=== PATIENT | male | born 2000 | race American Indian/Alaskan Native ===

== ENCOUNTER 2018-07-01 20:22 | Emergency (ER) | payer SELFPAY ==
[2018-07-01] MEDS ORDERED: ZOFRAN IV ONE (20:53)
[2018-07-01] MEDS ORDERED: KETALAR IV ONE (20:53)
[2018-07-01] MEDS ORDERED: DIPRIVAN 10 MG/ML IV ONE (20:53)
[2018-07-01] MEDS ORDERED: NACL 0.9% 250ML 250 ML IV ONE (20:53)
--- NOTE | 2018-07-01 20:54 | Emergency Department Report ---
ED Lower Extremity HPI - General Chief Complaint: Extremity Injury, Lower Stated Complaint: KNEE PAIN Time Seen by Provider: 07/01/18 20:43 Source: patient Mode of arrival: Wheelchair Limitations: Physical Limitation - History of Present Illness Initial Comments: This is a 17-year-old gentleman, not known to this provider previously, reported history of prior knee injuries, who presents to the emergency room with a complaint of right-sided knee pain and potential patellar dislocation. Patient reports he was outside, "horsing around with my brother", when he reportedly twisted his knee, and therefore developed severe knee pain. He makes no complaint of headache, neck pain, chest pain, abdominal pain or shortness of breath. Hematologic no complaint of lower extremity weakness or numbness. The pain is sharp, does not radiate anywhere, increases with palpation and decreases with rest. MD Complaint: knee injury -: Sudden, hour(s) Injury: Knee: Right Type of Injury: other Place: home Severity: severe Improves With: rest Worsens With: movement, palpation Context: other Associated Symptoms: swelling - Related Data Previous Rx's Medication Instructions Recorded Last Taken Type Acetaminophen [Acetaminophen TAB] 500 mg PO Q6HR PRN #30 tablet 07/01/18 Unknown Rx Ibuprofen [Motrin] 400 mg PO Q8H PRN #30 tablet 07/01/18 Unknown Rx Allergies Allergy/AdvReac Type Severity Reaction Status Date / Time No Known Allergies Allergy Verified 07/01/18 20:28 ED Review of Systems ROS: Stated complaint: KNEE PAIN Other details as noted in HPI Constitutional: denies: fever Eyes: denies: eye discharge ENT: denies: epistaxis Respiratory: denies: cough Cardiovascular: denies: chest pain Gastrointestinal: denies: abdominal pain Musculoskeletal: joint swelling, arthralgia Skin: denies: lesions Neurological: denies: numbness, paresthesias Psychiatric: anxiety ED Past Medical Hx - Past Medical History Previous Medical History?: No - Surgical History Past Surgical History?: No - Social History Smoking Status: Current Every Day Smoker Substance Use Type: Alcohol, Marijuana - Medications Home Medications: Home Medications Medication Instructions Recorded Confirmed Last Taken Type Acetaminophen [Acetaminophen TAB] 500 mg PO Q6HR PRN #30 tablet 07/01/18 Unknown Rx Ibuprofen [Motrin] 400 mg PO Q8H PRN #30 tablet 07/01/18 Unknown Rx ED Physical Exam - General Limitations: Physical Limitation General appearance: alert, anxious, in distress - Head Head exam: Present: atraumatic, normocephalic - Eye Eye exam: Present: normal appearance, EOMI. Absent: nystagmus - ENT ENT exam: Present: normal exam, normal orophraynx, mucous membranes moist, normal external ear exam - Neck Neck exam: Present: normal inspection, full ROM. Absent: tenderness, meningismus - Respiratory Respiratory exam: Present: normal lung sounds bilaterally. Absent: respiratory distress - Cardiovascular Cardiovascular Exam: Present: regular rate, normal rhythm, normal heart sounds. Absent: bradycardia, tachycardia, irregular rhythm, systolic murmur, diastolic murmur, rubs, gallop - GI/Abdominal GI/Abdominal exam: Present: soft. Absent: distended, tenderness, guarding, rebound, rigid, pulsatile mass - Rectal Rectal exam: Present: deferred - Extremities Exam Extremities exam: Present: tenderness, other (2+ pulses noted in the bilateral upper, lower extremities. Compartments soft. No long bony tenderness. The pelvis is stable.). Absent: normal inspection (the bilateral upper extremities are within normal limits and nontender. Left lower extremity is within normal limits, and nontender. On the right lower extremity, the knee Appears to be laterally dislocated. There is tenderness around this area. There is also anterior and lateral joint line tenderness on the knee. There is no right hip tenderness, no right sided tenderness, no right ankle or foot tenderness. 2+ pulses noted in the bilateral upper and lower extremities, including bilateral femoral pulses to 2+, bilateral dorsalis pedis pulses are 2+), full ROM - Back Exam Back exam: Present: normal inspection, full ROM. Absent: tenderness, CVA tenderness (R), paraspinal tenderness, vertebral tenderness - Neurological Exam Neurological exam: Present: alert, other (Extraocular movements intact. Tongue midline. No facial droop. Facial sensation intact to light touch in the V1, V2, V3 distribution bilaterally. 5 and 5 strength in 4 extremities.. Sensation is intact to light touch in 4 extremities.). Absent: motor sensory deficit - Psychiatric Psychiatric exam: Present: anxious - Skin Skin exam: Present: warm, dry, intact, normal color. Absent: rash ED Course Vital Signs 07/01/18 07/01/18 07/01/18 20:29 21:30 21:32 Temperature 98.4 F Pulse Rate 85 98 H Respiratory 18 18 Rate Blood Pressure 128/65 O2 Sat by Pulse 99 100 Oximetry - Moderate Sedation Indications: fracture/dislocation redu Presedation Evaluation: Patient has no chronic medical conditions. He reports no adverse interactions or reactions to anesthesia. Airway patent colon and intact. Denies tobacco consumption. Low anesthetic risk ASA Class: I Mallampati Airway Score: 1 Time of Last PO Intake: 17:00 Preparation: potline monitor applied, pulse oximeter, capnometry used, supplemental O2 applied, suction/airway equipment at bedside, IV secured Ketamine: IV Ketamine Dose: 50 IV Propofol Dose (mgs): 50 - Orthopedic Joint Reduction Joint #1 Consent Obtained: verbal consent, written consent, emergent situation Time Out Performed: Yes Side: right Joint Reduction Location: knee/patella Analgesia: moderate sedation Technique Used: direct manipulation Post-Reduction Neuro Exam: intact Post-Reduction Vascular Exam: intact Post Reduction X-Ray Obtained: No (clinically intact, not necessarily) Splint Applied: Yes Patient Tolerated Procedure: well - Orthopedic Splinting/Casting Injury #1 Side: right Lower Extremity Injury Location: knee Lower Extremity Immobilizer: knee immobilizer Other Orthopedic Equipment: crutches ED Lower Extremity MDM - Lab Data Vital Signs 07/01/18 07/01/18 07/01/18 20:29 21:30 21:32 Temperature 98.4 F Pulse Rate 85 98 H Respiratory 18 18 Rate Blood Pressure 128/65 O2 Sat by Pulse 99 100 Oximetry - Radiology Data Radiology results: image reviewed interpreted by me: X-ray of the knee demonstrates no fracture. Patella dislocation is appreciated. - Medical Decision Making Differential diagnosis, including but not limited to: Right patellar dislocation Assessment and plan: 17-year-old gentleman with clinical and radiographic right patellar dislocation. No other injuries. Neurovascularly intact. Informed consent obtained for moderate sedation and closed reduction. Patient received 50 mg of ketamine, 50 mg of propofol, and right patella was easily reduced. It is reduced clinically and anatomically. A right knee immobilizer was placed by myself. Post procedure, patient resting comfortably, in stretcher, playing on a cellular phone, and in no acute distress. He will be given crutches, weightbearing as tolerated, and he will need to follow up with outpatient orthopedics for further evaluation and management. Patient was specifically counseled that he may have soft tissue, ligamentous injury, but it and he may need to perform rehabilitation and physical therapy. Critical care attestation.: If time is entered above; I have spent that time in minutes in the direct care of this critically ill patient, excluding procedure time. ED Disposition Clinical Impression: Dislocation of right patella Qualifiers: Encounter type: initial encounter Qualified Code(s): S83.004A - Unspecified dislocation of right patella, initial encounter Disposition: TO HOME OR SELFCARE Is pt being admited?: No Does the pt Need Aspirin: No Condition: Stable Instructions: Moderate Sedation (ED), Knee Pain (ED), Patellar Dislocation (ED) Additional Instructions: Rest, avoid heavy lifting, and avoid strenuous physical activities. Keep the knee immobilizer in place. Use crutches as directed, and weightbearing as tolerated on the right knee, right lower extremity. It is possible that based on the mechanism of injury, the patient may have ligamentous, or soft tissue injury. Therefore, knee immobilizer should stay in place, and the patient should follow-up with an outpatient orthopedic surgeon within the next 5-7 days to exclude soft tissue, ligamentous injury. Please take the pain medication as needed/directed, and return to the emergency room right away with new pain, worsened pain, migration of pain, projectile vomiting, change in mental status, confusion, inability to tolerate liquid feeds, new, worsening or different symptoms. Referrals: PRIMARY CAREMD [Primary Care Provider] - 3-5 Days TARUN OVALLES MD [Staff Physician] - 3-5 Days [facility] [Provider Group] - 3-5 Days
[2018-07-01] MEDS ORDERED: SODIUM CHLORIDE FLUSH SYRINGE 10 ML IV NR (21:00)
[2018-07-01] MEDS ORDERED: SUBLIMAZE ONE (21:02)
[2018-07-01] MEDS ORDERED: KETAMINE HCL IV ONE (22:00)
[2018-07-01] MEDS ORDERED: SUBLIMAZE IV ONE (22:08)
--- NOTE | 2018-07-01 22:25 | XRay Report ---
PROCEDURE: XR KNEE 1-2V RT TECHNIQUE: 2 views of the right knee HISTORY: right knee pain; POSSIBLE DISLOCATION COMPARISONS: FINDINGS: There is asymmetry on the AP view with lateral joint space narrowing. The femur appears medially subl uxed and rotated relative to the tibia positioning is suboptimal on the lateral view. No definitive f racture identified. There is calcification seen superior medial to the patella origin uncertain. Cons ider additional views as the patient's condition allows IMPRESSION: Medial subluxation at the knee joint Additional findings as described above consider additional views as the patient's condition allows. This document is electronically signed by Saul Cardenas MD., July 01 2018 10:23:22 PM ET
[2018-07-01 23:48] VITALS: BP 127/73
== END 2018-07-01 23:15 | disposition home or self-care (01) ==
LOC: ED 20:22
DX: S83.004A Unspecified dislocation of right patella, initial encounter (principal); F17.200 Nicotine dependence, unspecified, uncomplicated; F12.10 Cannabis abuse, uncomplicated; W50.2XXA Accidental twist by another person, initial encounter; Y93.89 Activity, other specified; Y92.098 Other place in other non-institutional residence as the place of occurrence of the external cause; Y99.8 Other external cause status
CPT/HCPCS: 27560; 73560; 96374; 96375; 99284; J2405; J2704; J3010; J7050